=== PATIENT | female | born 1995 | race Hispanic/Latino ===

== ENCOUNTER 2021-11-30 21:03 | Inpatient (IN) | payer OTHER ==
[~2021-11-30 21:03] MED LIST: Bupivacaine 0.25% HCL 30 ML VIAL ONE
[2021-11-30 21:40] VITALS: BMI 28.7
[2021-11-30] MEDS ORDERED: Misoprostol 200 MCG TAB PR PRN (22:10)
[2021-11-30] MEDS ORDERED: HYDROcodone/Acetaminophen 5/325 mg Tablet PO PRN ×2 (22:10)
[2021-11-30] MEDS ORDERED: Acetaminophen 500 MG TAB PO PRN (22:10)
[2021-11-30] MEDS ORDERED: Methylergonovine 0.2 MG/ML VIAL IM PRN (22:10)
[2021-11-30] MEDS ORDERED: Butorphanol Tartrate 1 MG/ML VIAL SLOW IVP PRN (22:10)
[2021-11-30] MEDS ORDERED: Carboprost 250 MCG/ML AMP IM PRN (22:10)
[2021-11-30] MEDS ORDERED: Ibuprofen 800 MG TAB PO PRN (22:10)
[2021-11-30] MEDS ORDERED: Diphenoxylate HCl/Atropine Tablet PO PRN ×2 (22:10)
[2021-11-30] MEDS ORDERED: Ondansetron PF 4 MG/2 ML Vial IVP PRN (22:10)
[2021-11-30] MEDS ORDERED: Lidocaine 1% (PF) 30 ML VIAL SC PRN (22:10)
[2021-11-30] MEDS ORDERED: hydrALAZINE 20 MG/ML VIAL SLOW IVP PRN (22:10)
[2021-11-30] MEDS ORDERED: Promethazine HCl 25 MG/ML VIAL IM PRN (22:10)
[2021-11-30] MEDS ORDERED: NS w/ Oxytocin 30 units 500 ML IV SCH (22:15)
[2021-11-30 22:53] LABS: Hemoglobin 12.4 g/dL (12.0-15.5); Mean Corpuscular HGB CONC 35.2 g/dL (32.0-36.0); Mean Corpuscular Volume 82.2 fl (81.6-98.3); Mean Platelet Volume 10.3 fl (7.4-10.4); Platelet Count 212 10x3/uL (150-450); RBC Distribution Width 12.8 % (11.5-14.5); Red Blood Cell (RBC) Count 4.28 10x6/uL (3.90-5.03); White Blood Cell (WBC) Count 8.9 10x3/uL (3.5-10.5)
[2021-11-30 23:18] LABS: Syphilis Antibody Nonreactive (Nonreactive); Syphilis Antibody Index 0.03 S/CO (<1.00 Non-Reactive)
[2021-11-30 23:19] LABS: HBSAg Index 0.24 S/CO (0-0.99); Hep B Surf Ag Non-Reactive S/CO (NonReactive)
[2021-11-30 23:31] LABS: SARS-CoV-2 NAA Rapid Test Not Detected (NotDetected)
[2021-12-01] MEDS ORDERED: NS w/ Oxytocin 30 units 500 ML IVPB SCH (06:00)
[2021-12-01] MEDS ORDERED: NS w/ Oxytocin 30 units 500 ML IV SCH ×2 (06:00→15:44)
[2021-12-01] MEDS ORDERED: Lidocaine 1% (PF) 30 ML VIAL SC PRN (06:00)
[2021-12-01] MEDS: Lactated Ringer's 1,000 ML IV SCH ×3 (08:43→10:24)
[2021-12-01] MEDS ORDERED: Fentanyl 2 mcg/Bup 0.1% Cadd 100 ML ONE (09:23)
[2021-12-01] MEDS ORDERED: Lactated Ringer's 500 ML IV PRN (09:49)
[2021-12-01] MEDS ORDERED: Acetaminophen 325 MG TAB PO PRN (09:49)
[2021-12-01] MEDS ORDERED: Promethazine HCl 25 MG/ML VIAL IM PRN ×2 (09:49→15:44)
[2021-12-01] MEDS ORDERED: Ondansetron PF 4 MG/2 ML Vial IVP PRN ×2 (09:49→15:44)
[2021-12-01] MEDS ORDERED: Moisturizing Cream (Eucerin) 113 GM JAR TOP PRN (09:49)
[2021-12-01] MEDS ORDERED: Naloxone HCl 0.4 mg/ml Vial IVP PRN ×2 (09:49)
[2021-12-01] MEDS ORDERED: ePHEDrine Sulfate 50 MG/10 ML VIAL SLOW IVP PRN (09:49)
[2021-12-01] MEDS ORDERED: diphenhydrAMINE 50 MG/ML VIAL IVP PRN (09:49)
[2021-12-01] MEDS ORDERED: Fentanyl 2 mcg/Bupivacaine 0.1% Cassette 100 ML EPIDURAL SCH (10:00)
[2021-12-01] MEDS ORDERED: Communication Order-Pharmacy FS SCH (10:00)
[2021-12-01] MEDS ORDERED: Methylergonovine 0.2 MG/ML VIAL IM PRN (15:44)
[2021-12-01] MEDS ORDERED: Measles/Mumps/Rubella 10 MCG/0.5 ML VIAL SC ONE (15:44)
[2021-12-01] MEDS ORDERED: hydrALAZINE 20 MG/ML VIAL SLOW IVP PRN (15:44)
[2021-12-01] MEDS ORDERED: Boostrix 0.5 ML (Tdap) VIAL (>/=7 yrs of age) IM ONE (15:44)
[2021-12-01] MEDS ORDERED: Preparation H Ointment 28 GM TUBE PR PRN (15:44)
[2021-12-01] MEDS ORDERED: Lanolin Ointment 7 GM TUBE TOP PRN (15:44)
[2021-12-01] MEDS ORDERED: Zolpidem Tartrate 5 MG TAB PO PRN (15:44)
[2021-12-01] MEDS ORDERED: Milk Of Magnesia 30 ML UDCUP PO PRN (15:44)
[2021-12-01] MEDS ORDERED: diphenhydrAMINE 25 MG CAP PO PRN (15:44)
[2021-12-01] MEDS ORDERED: Benzocaine-Menthol 82.5 ML CAN TOP PRN (15:44)
[2021-12-01] MEDS ORDERED: HYDROcodone/Acetaminophen 5/325 mg Tablet PO PRN (15:44)
[2021-12-01] MEDS ORDERED: Bisacodyl 10 MG SUPP PR PRN (15:44)
[2021-12-01] MEDS: Ferrous Sulfate 325 MG TAB PO SCH (16:12)
[2021-12-01] MEDS: Ibuprofen 800 MG TAB PO SCH (21:15)
[2021-12-01] MEDS: Docusate 100 MG CAP PO SCH (21:15)
[2021-12-02] MEDS: Ibuprofen 800 MG TAB PO SCH ×3 (05:16→21:48)
[2021-12-02 05:57] LABS: Hemoglobin 9.4 g/dL (12.0-15.5); Mean Corpuscular HGB CONC 34.3 g/dL (32.0-36.0); Mean Corpuscular Hemoglobin 29.3 pg (27.0-33.0); Mean Corpuscular Volume 85.4 fl (81.6-98.3); Mean Platelet Volume 10.1 fl (7.4-10.4); Platelet Count 196 10x3/uL (150-450); RBC Distribution Width 12.6 % (11.5-14.5); Red Blood Cell (RBC) Count 3.21 10x6/uL (3.90-5.03); White Blood Cell (WBC) Count 8.5 10x3/uL (3.5-10.5)
[2021-12-02] MEDS: Docusate 100 MG CAP PO SCH ×2 (09:10→21:48)
[2021-12-02] MEDS: Ferrous Sulfate 325 MG TAB PO SCH ×2 (09:10→17:01)
[2021-12-02] MEDS ORDERED: Varicella virus, LIVE 0.5 ML VIAL SC ONE (15:44)
[2021-12-03 04:41] VITALS: TEMP 98.4
[2021-12-03] MEDS: Ibuprofen 800 MG TAB PO SCH (05:41)
[2021-12-03] MEDS: Docusate 100 MG CAP PO SCH (08:48)
[2021-12-03] MEDS: Ferrous Sulfate 325 MG TAB PO SCH (08:49)
[2021-12-03 10:13] VITALS: BP 120/74
== END 2021-12-03 12:29 | disposition home or self-care (01) | DRG 807 ==
LOC: CSHLD/OP 21:03 → CSHLD 22:07 → CSHPP 12-01 15:33
PROVIDERS: ADMIT Obstetrics & Gynecology; ATTEND Obstetrics & Gynecology
PROC: 10E0XZZ Delivery of Products of Conception, External Approach (ICD-10-PCS; principal; 2021-12-01)
DX: O70.1 Second degree perineal laceration during delivery (principal); Z37.0 Single live birth; Z3A.39 39 weeks gestation of pregnancy; Z20.822 Contact with and (suspected) exposure to COVID-19
CPT/HCPCS: 36415; 51702; 85027; 86780; 86850; 86900; 86901; 87340; 99285; J2590; J7120; S0020; U0002